=== PATIENT | male | born 1950 | race Caucasian/White ===

== ENCOUNTER → 2023-06-12 11:54 | Outpatient (CLI) | payer OTHER, SELFPAY ==
--- NOTE | 2023-06-12 | DI.RAD.S_ITS ---
PROCEDURE: XR CHEST 2V INDICATIONS: hypertension TECHNIQUE: 2 views of the chest were acquired. COMPARISON: None. FINDINGS: Surgical changes and devices: None. Lungs and pleura: Lungs are clear. No pleural effusions or pneumothorax. Mediastinum: Mediastinal contours are normal. Heart size is normal. Bones and chest wall: No suspicious bony abnormalities. Soft tissues appear unremarkable. IMPRESSION: No acute cardiopulmonary abnormality is seen. Dictated by: Zuly Celeste M.D. on 06/12/2023 at 16:37 Approved by: Zuly Celeste M.D. on 06/12/2023 at 16:37
== END ==
PROVIDERS: PCP Family Medicine; Referring Provider Family Medicine; Visit Provider Family Medicine
DX: I10 Essential (primary) hypertension (principal)
CPT/HCPCS: 71046

== ENCOUNTER → 2024-04-20 16:24 | Outpatient (CLI) | payer OTHER, SELFPAY ==
--- NOTE | 2024-04-20 16:24 | DI.US.S_ITS ---
PROCEDURE: US THYROID INDICATIONS: HYPOTHYROIDISM TECHNIQUE: Real-time scanning was performed of the thyroid gland, with image documentation. COMPARISON: None. FINDINGS: Thyroid: Right lobe measures 6.1 x 2.3 x 2.4 cm. Left lobe measures 5.2 x 2.7 times from points from cm. Isthmus is 0.6 cm thick. Echotexture is heterogeneous. No thyroid nodules visualized. IMPRESSION: 1. The thyroid gland demonstrates heterogeneous echotexture. This finding is suggestive for thyroiditis. 2. No thyroid nodule. Dictated by: Abdelrahman Navarrete M.D. on 04/21/2024 at 11:22 Approved by: Abdelrahman Navarrete M.D. on 04/21/2024 at 11:30
== END ==
PROVIDERS: PCP Family Medicine; Referring Provider Family Medicine; Visit Provider Family Medicine
DX: E03.9 Hypothyroidism, unspecified (principal)
CPT/HCPCS: 76536

== ENCOUNTER → 2025-09-03 10:53 | Outpatient (CLI) | payer OTHER, SELFPAY ==
--- NOTE | 2025-09-03 10:58 | DI.RAD.S_ITS ---
PROCEDURE: XR SHOULDER LT MIN 2V INDICATIONS: M25.512 TECHNIQUE: Three views of the shoulder were acquired. COMPARISON: None. FINDINGS: Bones: No fractures or dislocations. Mild inferior spurring at the acromioclavicular joint. No suspicious bony lesions. Visualized ribs appear intact. Soft tissues: No suspicious soft tissue calcifications. IMPRESSION: Mild degenerative change. Dictated by: Kady Harmon M.D. on 09/03/2025 at 13:51 Approved by: Kady Harmon M.D. on 09/03/2025 at 13:51
== END ==
PROVIDERS: PCP Family Medicine; Referring Provider Family Medicine; Visit Provider Family Medicine
DX: M25.512 Pain in left shoulder (principal)
CPT/HCPCS: 73030